=== PATIENT | male | born 1965 | race Caucasian/White ===

== ENCOUNTER → 2016-05-01 | Outpatient (CLI) | payer BC ==
--- NOTE | 2016-05-01 17:44 | REP ---
Clinical: Facial pain. Technique: Mario Rivero, BRADV and lateral views of the sinuses. Findings: Mucosal thickening to the bilateral maxillary sinuses and possibly involving the ethmoid sinuses is appreciated without fluid levels or radiodense foreign body. Frontal sinuses and sphenoid sinuses appear relatively well aerated. The osseous structures are intact and normal. Impression: Mucosal thickening and partial opacification of the maxillary sinuses and ethmoid sinuses. Signed by Albaro Riley MD 05/01/2016 05:35 P
== END ==
LOC: M WUC 17:19
PROVIDERS: ATTEND Physician Assistant
DX: J01.00 Acute maxillary sinusitis, unspecified (principal); J01.20 Acute ethmoidal sinusitis, unspecified

== ENCOUNTER 2017-03-19 11:28 | Day surgery (SDC) | payer BC ==
[2017-03-19] MEDS: NS 1,000 ML IV (11:30)
[2017-03-19] MEDS ORDERED: PROPOFOL 200 MG/20 ML VIAL As Ordered ×2 (12:41→13:09)
== END 2017-03-19 13:26 | disposition home or self-care (01) ==
LOC: M OPP 11:28
DX: Z12.11 Encounter for screening for malignant neoplasm of colon (principal); M19.90 Unspecified osteoarthritis, unspecified site; M54.9 Dorsalgia, unspecified; R06.83 Snoring; Z87.891 Personal history of nicotine dependence
CPT/HCPCS: G0121

== ENCOUNTER → 2017-04-24 | Outpatient (REF) | payer BC ==
[2017-04-24 18:15] LABS: CK-MB VALUE MASS 2.2 NG/ML (0.0-3.6); CPK CREATINE PHOSPHOKINASE 192 U/L (39-308); MB/CK RELATIVE INDEX 1.14 (< OR =4); TROPONIN I < 0.02 NG/ML (< 0.10)
== END ==
LOC: M LAB REF 16:15
DX: R07.9 Chest pain, unspecified (principal)
CPT/HCPCS: 82550

== ENCOUNTER 2017-04-25 16:44 | Emergency (ER) | payer BC ==
[2017-04-25 17:50] LABS: BASO # 0.1 10^3/uL (0.0-0.2); BASO % 0.7 % (0.0-1.0); EOS # 0.2 10^3/uL (0.0-0.50); EOS % 1.4 % (0.0-3.0); HEMATOCRIT 41.8 % (42.0-52.0); HEMOGLOBIN 14.2 g/dl (14.0-18.0); IMMATURE GRANULOCYTE % 0.2 % (0-3.0); LYMPH # 2.6 10^3/uL (1.5-4.5); LYMPH % 24.2 % (24.0-44.0); MEAN CORPUSCULAR HEMOGLOBIN 29.2 pg (27.0-33.0); MEAN CORPUSCULAR VOLUME 85.8 fl (80.0-96.0); MONO # 0.8 10^3/uL (0.0-0.8); MONO % 7.8 % (0.0-5.0); NEUTROPHILS % 65.7 % (36.0-66.0); PLATELET COUNT, AUTOMATED 286 10^3/uL (150-450); RED BLOOD COUNT 4.87 10^6/uL (4.30-6.10); RED CELL DISTRIBUTION WIDTH 12.6 % (11.5-14.5); WHITE BLOOD COUNT 10.7 10^3/uL (4.0-10.0)
[2017-04-25 18:16] LABS: INR 1.05; PROTHROMBIN TIME 13.8 SECONDS (12.4-14.5)
[2017-04-25 18:17] LABS: PARTIAL THROMBOPLASTIN TIME 30.8 SECONDS (26.8-37.9)
[2017-04-25 18:21] LABS: ALBUMIN/GLOBULIN RATIO 1.11 (1.00-1.93); ALKALINE PHOSPHATASE 81 U/L (45-117); ALT/SGPT 25 U/L (12-78); ANION GAP 6 MEQ/L (8-16); AST/SGOT 19 U/L (7-37); BILIRUBIN,DIRECT < 0.1 MG/DL (0.0-0.2); BILIRUBIN,TOTAL 0.5 MG/DL (0.2-1.0); BLOOD UREA NITROGEN 19 MG/DL (7-18); CARBON DIOXIDE LEVEL 30 MEQ/L (21-32); CHLORIDE LEVEL 104 MEQ/L (98-107); CK-MB VALUE MASS 3.2 NG/ML (0.0-3.6); CPK CREATINE PHOSPHOKINASE 267 U/L (39-308); CREATININE FOR GFR 1.15 MG/DL (0.70-1.30); GLOMERULAR FILTRATION RATE > 60.0 (>56); GLUCOSE, FASTING 78 MG/DL (70-100); LIPASE 165 U/L (73-393); MB/CK RELATIVE INDEX 1.19 (< OR =4); POTASSIUM SERUM 3.8 MEQ/L (3.5-5.1); SODIUM LEVEL 140 MEQ/L (136-145); TOTAL PROTEIN 7.6 GM/DL (6.4-8.2); TROPONIN I < 0.02 NG/ML (< 0.10)
[2017-04-25] MEDS: ASPIRIN 81 MG CHEW TABLET PO (19:15)
[2017-04-25] MEDS ORDERED: ISOVUE-370 76% 100ML VIAL (Q9967) As Ordered (19:57)
[2017-04-25 23:23] LABS: CPK CREATINE PHOSPHOKINASE 280 U/L (39-308); TROPONIN I < 0.02 NG/ML (< 0.10)
[2017-04-25 23:24] LABS: CK-MB VALUE MASS 3.1 NG/ML (0.0-3.6)
== END 2017-04-26 00:05 | disposition home or self-care (01) ==
LOC: M ED 04-26 00:05
DX: R07.9 Chest pain, unspecified (principal); Z79.899 Other long term (current) drug therapy; Z87.891 Personal history of nicotine dependence
CPT/HCPCS: Q9967

== ENCOUNTER → 2017-09-11 | Outpatient (CLI) | payer OTHER | LOC: M LRY 19:38 | DX: S59.901A Unspecified injury of right elbow, initial encounter (principal); M19.021 Primary osteoarthritis, right elbow; X58.XXXA Exposure to other specified factors, initial encounter; Y92.9 Unspecified place or not applicable | CPT/HCPCS: 73080 ==

== ENCOUNTER → 2018-07-29 | Outpatient (REF) | payer BC ==
[~2018-07-29] MED LIST: AMLO5TAB6 PO; OXYC1TAB23 PO
[2018-08-01 00:06] LABS: CYCLIC CITRULLINATED PEPTIDE 8 units (0-19); Lyme Disease IgG/IgM Antibodie <0.91 ISR (0.00-0.90); Lyme Disease IgM Ab Quantitati <0.80 index (0.00-0.79)
== END ==
LOC: M LAB REF 16:52
PROVIDERS: ATTEND Internal Medicine
DX: M25.511 Pain in right shoulder (principal)

== ENCOUNTER 2018-11-30 14:37 | Emergency (ER) | payer BC ==
[~2018-11-30] VITALS: Ht 188 cm; Wt 95.3 kg
[2018-11-30] MEDS ORDERED: LOSA50TA88 (14:43)
[2018-11-30 15:38] LABS: BASO # 0.1 10^3/uL (0.0-0.2); BASO % 0.7 % (0.0-1.0); EOS # 0.2 10^3/uL (0.0-0.5); EOS % 1.6 % (0.0-3.0); HEMATOCRIT 42.1 % (42.0-52.0); HEMOGLOBIN 14.1 g/dl (13.5-17.5); LYMPH # 1.8 10^3/uL (1.5-5.0); LYMPH % 17.7 % (24.0-44.0); MEAN CORPUSCULAR HEMOGLOBIN 29.3 pg (27.0-33.0); MEAN CORPUSCULAR HGB CONC 33.5 g/dl (32.0-36.5); MEAN CORPUSCULAR VOLUME 87.5 fl (80.0-96.0); MONO # 0.7 10^3/uL (0.0-0.8); MONO % 7.1 % (0.0-5.0); NEUTROPHILS # 7.5 10^3/uL (1.5-8.5); NEUTROPHILS % 72.6 % (36.0-66.0); PLATELET COUNT, AUTOMATED 271 10^3/uL (150-450); RED BLOOD COUNT 4.81 10^6/uL (4.30-6.10); WHITE BLOOD COUNT 10.3 10^3/uL (4.0-10.0)
[2018-11-30 15:51] LABS: ALBUMIN 3.7 GM/DL (3.2-5.2); ALT/SGPT 35 U/L (12-78); BILIRUBIN,DIRECT 0.1 MG/DL (0.0-0.2); BILIRUBIN,TOTAL 0.5 MG/DL (0.2-1.0); BLOOD UREA NITROGEN 12 MG/DL (7-18); CALCIUM LEVEL 8.5 MG/DL (8.5-10.1); CARBON DIOXIDE LEVEL 29 MEQ/L (21-32); CHLORIDE LEVEL 107 MEQ/L (98-107); CK-MB VALUE MASS 2.7 NG/ML (<3.6); CPK CREATINE PHOSPHOKINASE 202 U/L (39-308); CREATININE FOR GFR 1.09 MG/DL (0.70-1.30); GLOMERULAR FILTRATION RATE > 60.0 (>56); GLUCOSE, FASTING 80 MG/DL (70-100); LIPASE 122 U/L (73-393); MB/CK RELATIVE INDEX 1.34 (< OR =4); POTASSIUM SERUM 4.1 MEQ/L (3.5-5.1); SODIUM LEVEL 141 MEQ/L (136-145); TOTAL PROTEIN 6.9 GM/DL (6.4-8.2); TROPONIN I < 0.02 NG/ML (< 0.10)
[2018-11-30] MEDS ORDERED: ISOVUE-370 76% 100ML VIAL (Q9967) As Ordered ONE (15:52)
--- NOTE | 2018-11-30 16:49 | REP ---
Right upper quadrant sonography: History: Right upper quadrant pain. Comparison study: Comparison is made with today's CT abdomen images. Findings: Scanning through the right upper quadrant of the abdomen demonstrates a normal sized, thin-walled gallbladder without evidence of stone or polyp. Common bile duct is normal measuring 0.6 cm in greatest diameter. No focal liver lesion is seen. There is evidence of mild fatty infiltration of the liver. Liver size is normal. No pancreatic abnormality is observed. No right renal abnormality is seen. There is no evidence of ascites. The right kidney measures 10.8 x 6.1 x 5.5 cm. Impression: Findings consistent with mild fatty infiltration of the liver. Otherwise negative right upper quadrant sonography. Electronically Signed by Charlie Quintanilla MD 11/30/2018 04:40 P
[2018-11-30] MEDS ORDERED: OMEP40CA97 PO (16:58)
[2018-11-30 17:18] VITALS: BP 127/82
--- NOTE | 2018-11-30 19:27 | ECGEPIP ---
[facility] - ED Test Date: 2018-11-30 Pat Name: NINA MARIA Department: Room: - Gender: Male Painter: claude : 1965 Requested By: Kim Frey [employer] Order Number: [id number] Reading MD: Chapin Ignacio Measurements Intervals [place] Rate: 88 P: 61 AL: 155 QRS: -17 QRSD: 95 T: 43 QT: 340 QTc: 412 Interpretive Statements SINUS RHYTHM SIMILAR TO 04/25/17 Electronically Signed on 11-30-2018 19:27:25 EDT by Chapin Ignacio
--- NOTE | 2018-12-01 06:45 | REP ---
CT thoracic aortic angiogram: With IV contrast. History: Rule out aortic dissection. Comparison studies: Comparison CT study April 25, 2017. Contrast dose: 100 mL of Isovue [address] technique: Helical scanning is acquired and overlapping 1.5 mm and contiguous 3 mm axial images are reformatted. In addition, maximum intensity projection and multiplanar re-formation images are generated in sagittal and coronal imaging projections. CT angiographic findings: There is good opacification of the thoracic aorta. It enhances homogeneously and is normal in course and caliber. There is no evidence of aneurysm or dissection. There is also good opacification of the pulmonary arterial tree. No vessel cutoff or filling defect is seen to suggest pulmonary embolus. There is no evidence of pleural or pericardial effusion. No adrenal lesion is seen. The visualized upper abdominal structures are unremarkable. There is a small cyst in the left lobe of the thyroid. This measures 12 mm in greatest diameter and is unchanged from the April 25, 2017 study. No infiltrate is seen in the lung stewart. No significant pulmonary nodule or mass lesion is observed. There are degenerative changes in the thoracic spine. No bony destructive lesion is seen. Impression: Negative CT thoracic angiogram. No acute thoracic abnormality. Electronically Signed by Charlie Quintanilla MD 12/01/2018 08:33 A
--- NOTE | 2018-12-01 06:46 | REP ---
CT angiography of the abdomen with IV contrast: History: Rule out aortic dissection. CT contrast dose: 100 mL of intravenous Isovue 370. CT angiographic findings: There is good opacification of the abdominal aorta and there is no evidence of aneurysm or dissection. Singular non-stenotic renal arteries are seen. The SMA and celiac axis are patent. Flow was observed in the inferior mesenteric artery as well. Common iliac arteries are intact. No retroperitoneal mass or adenopathy is seen. No focal liver or spleen lesion is seen. The pancreas is unremarkable. No abnormality is noted in the gallbladder. The kidneys enhance symmetrically and are morphologically intact. There are degenerative changes in the thoracic and lumbar spine. Impression: Negative CT angiography of the abdomen. No aneurysm or dissection. No acute abdominal abnormality. Electronically Signed by Charlie Quintanilla MD 12/01/2018 08:33 A
== END 2018-11-30 17:34 | disposition home or self-care (01) ==
LOC: M ED 14:37
DX: K76.0 Fatty (change of) liver, not elsewhere classified (principal); D72.829 Elevated white blood cell count, unspecified; I10 Essential (primary) hypertension; Z79.899 Other long term (current) drug therapy; Z87.891 Personal history of nicotine dependence
CPT/HCPCS: 36415; 71275; 74175; 76705; 80048; 80076; 82550; 82553; 83690; 84484; 85025; 93005; 99284; Q9967

== ENCOUNTER 2018-12-02 12:29 | Emergency (ER) | payer BC ==
[~2018-12-02] VITALS: Ht 188 cm; Wt 92.3 kg
[~2018-12-02 12:29] MED LIST changes: -KETO10TAB PO
[2018-12-02] MEDS: GASTROGRAFIN SOLUTION 30ML PO SCH ×2 (14:52→15:35)
[2018-12-02 14:57] LABS: BASO # 0.1 10^3/uL (0.0-0.2); BASO % 0.6 % (0.0-1.0); EOS # 0.1 10^3/uL (0.0-0.5); EOS % 0.6 % (0.0-3.0); HEMATOCRIT 47.4 % (42.0-52.0); HEMOGLOBIN 15.7 g/dl (13.5-17.5); LYMPH # 1.8 10^3/uL (1.5-5.0); LYMPH % 16.1 % (24.0-44.0); MEAN CORPUSCULAR HEMOGLOBIN 29.3 pg (27.0-33.0); MEAN CORPUSCULAR HGB CONC 33.1 g/dl (32.0-36.5); MEAN CORPUSCULAR VOLUME 88.6 fl (80.0-96.0); MONO # 0.9 10^3/uL (0.0-0.8); MONO % 7.5 % (0.0-5.0); NEUTROPHILS # 8.5 10^3/uL (1.5-8.5); NEUTROPHILS % 74.9 % (36.0-66.0); PLATELET COUNT, AUTOMATED 280 10^3/uL (150-450); RED BLOOD COUNT 5.35 10^6/uL (4.30-6.10); WHITE BLOOD COUNT 11.4 10^3/uL (4.0-10.0)
[2018-12-02 15:32] LABS: ALBUMIN 4.3 GM/DL (3.2-5.2); ALT/SGPT 28 U/L (12-78); BILIRUBIN,DIRECT 0.2 MG/DL (0.0-0.2); BILIRUBIN,TOTAL 0.9 MG/DL (0.2-1.0); BLOOD UREA NITROGEN 14 MG/DL (7-18); CALCIUM LEVEL 9.7 MG/DL (8.5-10.1); CARBON DIOXIDE LEVEL 27 MEQ/L (21-32); CHLORIDE LEVEL 104 MEQ/L (98-107); CREATININE FOR GFR 0.96 MG/DL (0.70-1.30); GLOMERULAR FILTRATION RATE > 60.0 (>56); GLUCOSE, FASTING 91 MG/DL (70-100); LIPASE 90 U/L (73-393); POTASSIUM SERUM 4.6 MEQ/L (3.5-5.1); SODIUM LEVEL 138 MEQ/L (136-145); TOTAL PROTEIN 7.9 GM/DL (6.4-8.2)
[2018-12-02] MEDS ORDERED: ISOVUE-370 76% 100ML VIAL (Q9967) As Ordered ONE (16:06)
[2018-12-02 17:03] VITALS: BP 122/81
[2018-12-02] MEDS ORDERED: KETO10TAB PO (17:27)
--- NOTE | 2018-12-02 18:38 | REP ---
CT ABDOMEN AND PELVIS WITH ORAL AND IV CONTRAST: TECHNIQUE: Axial contrast enhanced images from the lung bases to the pubic symphysis using 100 mL Isovue 370 intravenous contrast material with multiplanar reformations. Visualized lung bases demonstrate mild dependant atelectatic change. The liver, spleen, adrenals, pancreas and kidneys are unremarkable. There is no abdominal aortic aneurysm. There is no adenopathy. There is no free air. Inferior to the hepatic flexure of the colon there is an oval fat density with central serpiginous blood vessel and surrounding hazy inflammation in an appearance most consistent with epiploic appendagitis. No bowel thickening is seen. No pelvic mass is seen. There is mild free fluid in the pelvis. The urinary bladder is unremarkable. IMPRESSION: Findings in the right upper quadrant just inferior to the hepatic flexure of the colon, most consistent with epiploic appendagitis. Mild free fluid in the pelvis. No free air or bowel inflammation. Electronically Signed by Félix Lagunas MD 12/04/2018 09:36 A
== END 2018-12-02 18:02 | disposition home or self-care (01) ==
LOC: M ED 12:29
DX: Q43.8 Other specified congenital malformations of intestine (principal); I10 Essential (primary) hypertension; Z79.899 Other long term (current) drug therapy
CPT/HCPCS: 36415; 74177; 80048; 80076; 83690; 85025; 99284; Q9963; Q9967

== ENCOUNTER → 2018-12-02 | Outpatient (REF) | payer BC ==
[~2018-12-02] MED LIST changes: +KETO10TAB PO; +LOSA50TA88; +OMEP40CA97 PO
[2018-12-02 18:24] LABS: C REACTIVE PROTEIN QUANTITATIV 2.46 MG/DL (0.00-0.30)
[2018-12-04 09:23] LABS: HEPATITIS B SURFACE ANTIGEN NEGATIVE (NEGATIVE)
[2018-12-04 09:50] LABS: HEPATITIS C VIRUS ABY INDEX 0.2 INDEX (<0.8)
[2018-12-04 09:51] LABS: HEPATITIS B CORE ANTIBODY IGM NEGATIVE (NEGATIVE)
[2018-12-04 09:52] LABS: HEPATITIS A ANTIBODY IGM NEGATIVE (NEGATIVE)
== END ==
LOC: M LAB REF 17:27
PROVIDERS: ATTEND Registered Nurse
DX: R10.9 Unspecified abdominal pain (principal)

== ENCOUNTER → 2020-11-12 | Outpatient (CLI) | payer BC ==
[~2020-11-12] MED LIST changes: +AMLO1TAB24 PO; -AMLO5TAB6 PO; +KETO10TAB PO; +OMEP40CA4 PO; -OMEP40CA97 PO
--- NOTE | 2020-11-14 18:47 | REPVR ---
PROCEDURE INFORMATION: Exam: MR Cervical Spine Without Contrast Exam date and time: 11/12/2020 11:59 AM Age: 55 years old Clinical indication: Neck pain and radicular pain (radiculopathy); Location of radicular pain not specified TECHNIQUE: Imaging protocol: Multiplanar magnetic resonance images of the cervical spine without contrast. COMPARISON: CT ANGIO CHEST 11/30/2018 3:52 PM FINDINGS: Cervical vertebral body heights are intact. Straightening of the cervical lordosis. The dens is intact. No abnormal marrow signal. No cord compression, expansion, or abnormal cord signal. Visualized structures of the posterior fossa are unremarkable. Soft tissues are unremarkable. C2-C3: Uncovertebral spurring causes mild left foraminal narrowing. No significant canal narrowing. C3-C4: Posterior disc protrusion and uncovertebral spurring cause mild bilateral foraminal narrowing. No significant canal narrowing. C4-C5: Posterior disc protrusion and uncovertebral spurring cause mild canal narrowing and severe bilateral foraminal narrowing. C5-C6: Posterior disc protrusion and uncovertebral spurring cause mild to moderate canal narrowing with effacement of the anterior thecal sac. Severe bilateral foraminal narrowing. C6-C7: Uncovertebral spurring causes mild right and severe left foraminal narrowing. No significant canal narrowing. C7-T1: No significant canal or foraminal narrowing. 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 Electronically signed by: Jesse Batista On 11/14/2020 18:46:55 PM
== END ==
LOC: M PLAIMG 11:06
PROVIDERS: ATTEND Physician Assistant Surgical
DX: M54.12 Radiculopathy, cervical region (principal)

== ENCOUNTER → 2021-06-22 | Outpatient (CLI) | payer BC ==
[~2021-06-22] MED LIST changes: +LOSA50TA28; -LOSA50TA88
== END ==
LOC: M WUC 14:40
PROVIDERS: ATTEND Physician Assistant
DX: R05.9 Cough, unspecified (principal)

== ENCOUNTER → 2022-04-28 | Outpatient (CLI) | payer BC | LOC: M RAD 11:33 | PROVIDERS: ATTEND Internal Medicine | DX: R60.9 Edema, unspecified (principal) ==

== ENCOUNTER → 2022-06-16 | Outpatient (REF) | payer BC ==
[2022-06-20 08:11] LABS: LDL DIRECT 102 mg/dL (0-99)
== END ==
LOC: M LAB REF 12:14
PROVIDERS: ATTEND Internal Medicine
DX: E78.5 Hyperlipidemia, unspecified (principal)

== ENCOUNTER → 2023-08-10 | Outpatient (CLI) | payer BC | LOC: M RAD 14:59 | PROVIDERS: ATTEND Orthopaedic Surgery | DX: M50.322 Other cervical disc degeneration at C5-C6 level (principal) ==

== ENCOUNTER → 2023-12-06 | Outpatient (REF) | payer BC | LOC: M LAB REF 19:31 | PROVIDERS: ATTEND Internal Medicine | DX: K62.89 Other specified diseases of anus and rectum (principal) ==

== ENCOUNTER 2023-12-20 10:04 | Day surgery (SDC) | payer BC ==
[~2023-12-20] VITALS: Ht 188 cm; Wt 100.2 kg
[2023-12-20] MEDS ORDERED: LIDOCAINE 2% 100MG/5ML SDV (FOR ANES.) As Ordered ONE (10:25)
[2023-12-20] MEDS ORDERED: propofoL 200 MG/20 ML VIAL As Ordered ONE (10:25)
[2023-12-20] MEDS ORDERED: ROCURONIUM BROMIDE 50MG/5ML VIAL As Ordered ONE (10:43)
[2023-12-20] MEDS ORDERED: ONDANSETRON 4MG 2ML VIAL As Ordered ONE (10:44)
[2023-12-20] MEDS ORDERED: MIDAZOLAM INJ 2MG/2ML VIAL As Ordered ONE (10:45)
[2023-12-20] MEDS ORDERED: fentaNYL 100 MCG/2 ML INJECTION As Ordered ONE (10:45)
[2023-12-20] MEDS ORDERED: CHLOROPROCAINE PRES. FREE 3% 20ML VIAL As Ordered ONE (11:13)
[2023-12-20] MEDS ORDERED: SUGAMMADEX SODIUM 500 MG/5 ML VIAL (BRIDION) As Ordered ONE (11:42)
[2023-12-20] MEDS ORDERED: fentaNYL 100 MCG/2 ML INJECTION IV PRN (12:00)
[2023-12-20] MEDS ORDERED: ONDANSETRON 4MG 2ML VIAL IV PRN (12:00)
[2023-12-20] MEDS: HYDROMORPHONE HCL 0.5 MG/ 0.5 ML SYRINGE IV PRN (12:44)
[2023-12-20] MEDS: oxyCODONE 5MG TAB PO PRN (12:44)
[2023-12-20 13:40] VITALS: BP 147/97; TEMP 97.8; O2SAT 96
== END 2023-12-20 13:40 | disposition home or self-care (01) ==
LOC: M SDC 10:04
PROVIDERS: ATTEND Surgery
DX: K60.30 Anal fistula, unspecified (principal); K62.0 Anal polyp
CPT/HCPCS: 46270; 88305; J1171; J2250; J2401; J2405; J3010